=== PATIENT | female | born 1980 | race African-American/Black ===

== ENCOUNTER 2019-05-02 17:14 | Emergency (ER) | payer SELFPAY ==
[~2019-05-02] VITALS: Ht 177.8 cm; Wt 90.7 kg
--- NOTE | 2019-05-02 18:19 | PHYS DOC ---
Past Medical History Past Medical History: No Pertinent History (FARAZ BENNETT DO) Past Surgical History: No Surgical History (FARAZ BENNETT DO) Additional Information: Nonsmoker Alcohol Use: None Drug Use: None (FARAZ BENNETT DO) Adult General Chief Complaint Chief Complaint: ABDOMINAL PAIN HPI HPI Patient is a 39 year old female with no significant medical history who presents to the ED today for vaginal bleeding in . Patient states her last menstrual cycle was March 22, 2019. She states she started having vaginal bleeding on April 22, 2019 yesterday she bleeding quiet heavy and it has slowed down today. Patient is also complaining of abdominal cramping. She is a 4 para 3. She states she recently moved from [facility] to [facility]. [place] (BAM MILLER APRN) Review of Systems Review of Systems Constitutional: Denies fever or chills [] Eyes: Denies change in visual acuity, redness, or eye pain [] HENT: Denies nasal congestion or sore throat [] Respiratory: Denies cough or shortness of breath [] Cardiovascular: No additional information not addressed in HPI [] GI: Reports abdominal pain and vaginal bleeding in , denies nausea, vomiting, bloody stools or diarrhea [] : Denies dysuria or hematuria [] Musculoskeletal: Denies back pain or joint pain [] Integument: Denies rash or skin lesions [] Neurologic: Denies headache, focal weakness or sensory changes [] All other systems were reviewed and found to be within normal limits, except as documented in this note. (BAM MILLER APRN) Allergies Allergies Allergies Coded Allergies Type Severity Reaction Last Updated Verified No Known Drug Allergies 05/02/19 No (FARAZ BENNETT DO) Physical Exam Physical Exam Constitutional: Well developed, well nourished, no acute distress, non-toxic appearance. [] HENT: Normocephalic, atraumatic, bilateral external ears normal, oropharynx nisha st, no oral exudates, nose normal. [] Eyes: PERRLA, EOMI, conjunctiva normal, no discharge. [] Neck: Normal range of motion, no tenderness, supple, no stridor. [] Cardiovascular:Heart rate regular rhythm, no murmur [] Lungs & Thorax: Bilateral breath sounds clear to auscultation [] Abdomen: Bowel sounds normal, soft, no masses, no pulsatile masses. [] Pelvic exam External pelvic is normal, cervix is visualized, appears open mild amount of bright red blood in the vaginal vault which was removed with cotton swabs, mild tenderness around cervix, no adnexal tenderness. Skin: Warm, dry, no erythema, no rash. [] Back: No tenderness, no CVA tenderness. [] Extremities: No tenderness, no cyanosis, no clubbing, ROM intact, no edema. [] Neurologic: Alert and oriented X 3, normal motor function, normal sensory function, no focal deficits noted. [] Psychologic: Affect normal, judgement normal, mood normal. [] (MARIELAUNGABAM CBX OPERATOR) Physical Exam Constitutional: Well developed, well nourished, no acute distress, non-toxic appearance HENT: Normocephalic, atraumatic, oropharynx moist Lungs & Thorax: No respiratory distress Abdomen: Soft, no tenderness Skin: Warm, dry, no erythema, no rash Neurologic: Alert and oriented X 3, no focal deficits noted Psychologic: Affect normal, judgement normal (FARAZ BENNETT DO) Current Patient Data Vital Signs Vital Signs Date Time Temp Pulse Resp B/P (MAP) Pulse Ox O2 Delivery O2 Flow Rate FiO2 05/02/19 20:48 64 25 150/103 (119) 99 Room Air 05/02/19 18:20 98.7 98.7 (FARAZ BENNETT DO) Lab Values Laboratory Tests Test 05/02/19 18:00 05/02/19 18:18 05/02/19 19:05 Urine Collection Type Unknown Urine Color Yellow Urine Clarity Clear Urine pH 6.0 Urine Specific [place] >=1.030 Urine Protein Negative mg/dL (NEG-TRACE) Urine Glucose (UA) 100 mg/dL (NEG) Urine Ketones (Stick) Negative mg/dL (NEG) Urine Blood Large (NEG) Urine Nitrite Negative (NEG) Urine Bilirubin Negative (NEG) Urine Urobilinogen Dipstick 1.0 mg/dL (0.2 mg/dL) Urine Leukocyte Esterase Negative (NEG) Urine RBC 11-20 /HPF (0-2) Urine WBC 0 /HPF (0-4) Urine Squamous Epithelial Cells Few /LPF Urine Bacteria 0 /HPF (0-FEW) POC Urine HCG, Qualitative Hcg positive (Negative) White Blood Count 4.3 x10^3/uL (4.0-11.0) Red Blood Count 4.44 x10^6/uL (3.50-5.40) Hemoglobin 11.9 g/dL (12.0-15.5) L Hematocrit 35.7 % (36.0-47.0) L Mean Corpuscular Volume 80 fL (79-100) Mean Corpuscular Hemoglobin 27 pg (25-35) Mean Corpuscular Hemoglobin Concent 33 g/dL (31-37) Red Cell Distribution Width 14.5 % (11.5-14.5) Platelet Count 279 x10^3/uL (140-400) Neutrophils (%) (Auto) 41 % (31-73) Lymphocytes (%) (Auto) 44 % (24-48) Monocytes (%) (Auto) 13 % (0-9) H Eosinophils (%) (Auto) 1 % (0-3) Basophils (%) (Auto) 1 % (0-3) Neutrophils # (Auto) 1.8 x10^3uL (1.8-7.7) Lymphocytes # (Auto) 1.9 x10^3/uL (1.0-4.8) Monocytes # (Auto) 0.6 x10^3/uL (0.0-1.1) Eosinophils # (Auto) 0.1 x10^3/uL (0.0-0.7) Basophils # (Auto) 0.0 x10^3/uL (0.0-0.2) Maternal Serum HCG Beta Subunit 169 mIU/mL (0-5) H Sodium Level 138 mmol/L (136-145) Potassium Level 3.3 mmol/L (3.5-5.1) L Chloride Level 103 mmol/L (98-107) Carbon Dioxide Level 26 mmol/L (21-32) Anion Gap 9 (6-14) Blood Urea Nitrogen 12 mg/dL (7-20) Creatinine 1.0 mg/dL (0.6-1.0) Estimated GFR (Cockcroft-Gault) 75.1 BUN/Creatinine Ratio 12 (6-20) Glucose Level 100 mg/dL (70-99) H Calcium Level 8.8 mg/dL (8.5-10.1) Total Bilirubin 0.3 mg/dL (0.2-1.0) Aspartate Amino Transferase (AST) 21 U/L (15-37) Alanine Aminotransferase (ALT) 26 U/L (14-59) Alkaline Phosphatase 63 U/L (46-116) Total Protein 7.3 g/dL (6.4-8.2) Albumin 3.8 g/dL (3.4-5.0) Albumin/Globulin Ratio 1.1 (1.0-1.7) Laboratory Tests 05/02/19 19:05 Laboratory Tests 05/02/19 19:05 Microbiology 05/02/19 Wet Prep - Final, Complete (FARAZ BENNETT DO) Lab Values Microbiology 05/02/19 Wet Prep - Final, Complete (BAM MILLER APRN) EKG EKG [] (BAM MILLER APRN) Radiology/Procedures Radiology/Procedures [] (BAM MILLER APRN) Radiology/Procedures PROCEDURE: OB <14 WKS W/TV OB ultrasound less than 14 weeks to include transabdominal and transvaginal imaging 05/02/2019 CLINICAL HISTORY: First trimester with vaginal bleeding and pain. TECHNIQUE: Using the distended urinary bladder as a sonographic window, a real-time ultrasound examination of the pelvis was performed. Additionally in an attempt to better evaluate the uterus and adnexa, a transvaginal ultrasound study was performed. Multiple images were obtained. FINDINGS: The uterus is within normal limits in size and echogenicity. It measures 11.2 x 5.9 x 4.8 cm in longitudinal, transverse, and AP dimensions. The endometrial echo complex measures 1.4 cm in thickness which is within normal limits. No focal abnormality of the uterus is seen. No gestational sac is seen within the uterus. Both ovaries are within normal limits in size and echogenicity. The right ovary measures 3.4 x 2.5 x 1.8 cm in size. The left ovary measures 3.4 x 2.0 x 2.4 cm in size. No adnexal mass is seen. No free fluid is noted. IMPRESSION: Negative study. In a patient who is , this ultrasound finding could be seen with a very early IUP, missed spontaneous or possibly due to an occult ectopic . Clinical correlation and correlation with the patient's serial beta hCG level is recommended. Electronically signed by: Agustin Sauceda MD (05/02/2019 8:34 PM) [facility] (FARAZ BENNETT DO) Course & Med Decision Making Course & Med Decision Making Pertinent Labs and Imaging studies reviewed. (See chart for details) This is a 39-year-old female patient G4 P 3 presenting to the ED today complaining of vaginal bleeding bleeding in that began 3 days ago she states she bleed heavily yesterday but it has slowed down. Last menstrual cycle was March 22, 2019. Positive urine hCG, mild amount of bleeding noted in the vaginal vault during pelvic exam which was removed with cotton swabs. Positive urine hCG. CBC with a normal WBC, hemoglobin 11.9, hematocrit 35.7. Wet prep with wbc's otherwise no acute findings. CMP with K of 3.3 otherwise no acute findings. UA negative for infection. Beta hcg 169 Blood group O + OB ultrasound pending. [address] Bennett. (BAM MILLER APRN) Course & Med Decision Making Sign out obtained from Bam OLIVO for patient with concern for vaginal bleeding in with low BHCG. RH positive. Patient awaiting US results. US without signs of IUP. Concern for complete miscarriage. Patient seen and evaluated by myself. Patient stable for discharge with outpatient follow-up with PCP/SPA MANAGER. SPA MANAGER referral provided. Patient instructed to obtain repeat beta-hCG in the next 2- 3 days. Discussed findings and plan with patient and family, who acknowledge understanding and agreement. (FARAZ BENNETT DO) Dragon Disclaimer Dragon Disclaimer This electronic medical record was generated, in whole or in part, using a voice recognition dictation system. (BAM MILLER APRN) Departure Departure Impression: Primary Impression: Miscarriage Disposition: 01 HOME, SELF-CARE Condition: STABLE Referrals: MINA SHEPHERD Jr, MD Patient Instructions: Miscarriage, [id number] Additional Instructions: Please follow with your doctor or ELEMENT SETTER in the next 2-3 days to have a repeat BHCG lab test performed. Attending Signature Attending Signature I have personally interviewed and examined the patient. All charts, labs, and imaging studies were reviewed. I agree with the PA/TILE PROFESSIONAL's findings, exam, and plan. (FARAZ BENNETT DO) BAM MILLER APRN May 02, 2019 18:19 FARAZ BENNETT DO May 02, 2019 21:11
[2019-05-02 18:24] LABS: BILIRUBIN,URINE NEGATIVE (NEG); CLARITY,URINE CLEAR; COLOR,URINE YELLOW; NITRITE,URINE NEGATIVE (NEG); PROTEIN,URINE NEGATIVE (NEG-TRACE)
[2019-05-02 18:43] LABS: BACTERIA,URINE 0 /HPF (0-FEW); SQUAMOUS EPITHELIAL CELL,UR FEW /LPF; WBC,URINE 0 /HPF (0-4)
[2019-05-02 19:28] LABS: BASO % 1 % (0-3); EOS # 0.1 x10^3/uL (0.0-0.7); EOS % 1 % (0-3); HEMATOCRIT 35.7 % (36.0-47.0); HEMOGLOBIN 11.9 g/dL (12.0-15.5); LYMPH # 1.9 x10^3/uL (1.0-4.8); LYMPH % 44 % (24-48); MEAN CORPUSCULAR HEMOGLOBIN 27 pg (25-35); MEAN CORPUSCULAR HGB CONC 33 g/dL (31-37); MEAN CORPUSCULAR VOLUME 80 fL (79-100); MONO # 0.6 x10^3/uL (0.0-1.1); MONO % 13 % (0-9); NEUT # 1.8 x10^3uL (1.8-7.7); NEUT % 41 % (31-73); PLATELET COUNT 279 x10^3/uL (140-400); RED BLOOD COUNT 4.44 x10^6/uL (3.50-5.40); RED CELL DISTRIBUTION WIDTH 14.5 % (11.5-14.5); WHITE BLOOD COUNT 4.3 x10^3/uL (4.0-11.0)
[2019-05-02 19:35] LABS: CALCIUM 8.8 mg/dL (8.5-10.1); GFR 75.1; POTASSIUM 3.3 mmol/L (3.5-5.1)
[2019-05-02 19:42] LABS: ALBUMIN 3.8 g/dL (3.4-5.0); ALBUMIN/GLOBULIN RATIO 1.1 (1.0-1.7); TOTAL BILIRUBIN 0.3 mg/dL (0.2-1.0); TOTAL PROTEIN 7.3 g/dL (6.4-8.2)
--- NOTE | 2019-05-02 20:37 | RAD ---
OB ultrasound less than 14 weeks to include transabdominal and transvaginal imaging 05/02/2019 CLINICAL HISTORY: First trimester with vaginal bleeding and pain. TECHNIQUE: Using the distended urinary bladder as a sonographic window, a real-time ultrasound examination of the pelvis was performed. Additionally in an attempt to better evaluate the uterus and adnexa, a transvaginal ultrasound study was performed. Multiple images were obtained. FINDINGS: The uterus is within normal limits in size and echogenicity. It measures 11.2 x 5.9 x 4.8 cm in longitudinal, transverse, and AP dimensions. The endometrial echo complex measures 1.4 cm in thickness which is within normal limits. No focal abnormality of the uterus is seen. No gestational sac is seen within the uterus. Both ovaries are within normal limits in size and echogenicity. The right ovary measures 3.4 x 2.5 x 1.8 cm in size. The left ovary measures 3.4 x 2.0 x 2.4 cm in size. No adnexal mass is seen. No free fluid is noted. IMPRESSION: Negative study. In a patient who is , this ultrasound finding could be seen with a very early IUP, missed spontaneous or possibly due to an occult ectopic . Clinical correlation and correlation with the patient's serial beta hCG level is recommended. Electronically signed by: Agustin Sauceda MD (05/02/2019 8:34 PM) [facility]
[2019-05-02 20:48] VITALS: BP 150/103
[2019-05-06 00:07] LABS: GC PROBE Negative (Negative)
== END 2019-05-02 21:40 | disposition home or self-care (01) ==
LOC: ER 17:14
DX: O03.9 Complete or unspecified spontaneous abortion without complication (principal); Z3A.01 Less than 8 weeks gestation of pregnancy
CPT/HCPCS: 36415; 76801; 76817; 80053; 81001; 81025; 84702; 85025; 86850; 86900; 86901; 87491; 87591; 99285; Q0111

== ENCOUNTER 2019-10-30 17:57 | Observation (INO) | payer SELFPAY ==
[2019-10-30] MEDS ORDERED: IV RINGERS,LACTATED 1000ML 1,000 ML IV SCH (18:14)
[2019-10-30 18:30] LABS: BILIRUBIN,URINE NEGATIVE (NEG); CLARITY,URINE CLEAR; COLOR,URINE YELLOW; NITRITE,URINE NEGATIVE (NEG); PROTEIN,URINE NEGATIVE (NEG-TRACE)
[2019-10-30 18:43] LABS: BACTERIA,URINE MODERATE /HPF (0-FEW); RBC,URINE 0 /HPF (0-2); SQUAMOUS EPITHELIAL CELL,UR MOD /LPF; WBC,URINE 0 /HPF (0-4)
[2019-10-30 19:12] LABS: BASO % 1 % (0-3); EOS # 0.1 x10^3/uL (0.0-0.7); EOS % 1 % (0-3); HEMATOCRIT 31.6 % (36.0-47.0); HEMOGLOBIN 10.5 g/dL (12.0-15.5); LYMPH # 1.5 x10^3/uL (1.0-4.8); LYMPH % 24 % (24-48); MEAN CORPUSCULAR HEMOGLOBIN 28 pg (25-35); MEAN CORPUSCULAR HGB CONC 33 g/dL (31-37); MEAN CORPUSCULAR VOLUME 84 fL (79-100); MONO # 0.6 x10^3/uL (0.0-1.1); MONO % 10 % (0-9); NEUT # 4.1 x10^3/uL (1.8-7.7); NEUT % 65 % (31-73); PLATELET COUNT 237 x10^3/uL (140-400); RED BLOOD COUNT 3.75 x10^6/uL (3.50-5.40); RED CELL DISTRIBUTION WIDTH 14.1 % (11.5-14.5); WHITE BLOOD COUNT 6.4 x10^3/uL (4.0-11.0)
--- NOTE | 2019-10-30 20:05 | RAD ---
Obstetric ultrasound greater than 14 weeks: Reason for examination: Back pain. No care. 5 para 3 miscarriage 1. Transabdominal ultrasound examination of the pelvis was performed. Cervix length is normal at 5.2 cm and appears to be closed. There is possibly a 5.3 x 5.1 x 4.0 cm anterior fibroid present. Adnexal structures are not optimally visualized. Single viable intrauterine gestation is present. Cardiac activity is seen in the 4 chambered heart with a cardiac rate of 135 bpm. motion is present. Fetus is in breech presentation at the present time. There is a three-vessel umbilical cord with normal insertion. Adequate amniotic fluid is present at 12.2 cm. stomach, kidneys, bladder and spine showed no gross abnormalities. No gross intracranial abnormalities evident. Placenta is anterior and grade one. Biparietal diameter is 5.50 cm corresponding to gestational age of 22 weeks 5 days. Head circumference is 21.94 cm corresponding to gestational age of 24 weeks 0 days. Abdominal circumference is 19.43 cm corresponding to gestational age of 24 weeks 1 day. Femur length is 4.20 cm corresponding to gestational age of 23 weeks 5 days. Head circumference to abdominal circumference ratio is 1.13. Estimated weight is 638 g +/- 90 4 g. Estimated gestational age of 23 weeks 5 days and estimated date of confinement by ultrasound of 02/21/2020. IMPRESSION: Single viable intrauterine gestation with mean gestational age estimated at 23 weeks 5 days and estimated date of confinement of 02/21/2020. No gross abnormalities evident. Electronically signed by: Carleen Torres MD (10/30/2019 8:03 PM) [facility]
== END 2019-10-30 20:13 | disposition home or self-care (01) ==
LOC: 3 SO LND 17:57
PROVIDERS: ADMIT Obstetrics & Gynecology; ATTEND Obstetrics & Gynecology
DX: O26.899 Other specified pregnancy related conditions, unspecified trimester (principal); R10.9 Unspecified abdominal pain; Z3A.00 Weeks of gestation of pregnancy not specified
CPT/HCPCS: 36415; 76805; 81001; 85025; 86592; 86703; 86762; 86850; 86900; 86901; 87086; 87340; G0378; G0379

== ENCOUNTER 2019-12-29 17:53 | Emergency (ER) | payer SELFPAY ==
[~2019-12-29] VITALS: Ht 160 cm; Wt 77.0 kg
[2019-12-29 17:56] VITALS: BP 140/79
--- NOTE | 2019-12-29 18:18 | PHYS DOC ---
Past Medical History Past Medical History: No Pertinent History Past Surgical History: No Surgical History Smoking Status: Never Smoker Alcohol Use: None Drug Use: None Adult General Chief Complaint Chief Complaint: CHEST PAIN [facility] Patient is a 39 year old female who presents with epigastric pain started at 5:00 PM today. The patient states she is 7 months . Vital signs are stable. The patient denies any medical history. She denies any vaginal bleeding or discharge. Complete ROS were reviewed and found to be within normal limits, except as docum ented in the [facility] Allergies Allergies Allergies Coded Allergies Type Severity Reaction Last Updated Verified No Known Drug Allergies 05/02/19 No Physical Exam Physical Exam Constitutional: Well developed, well nourished, no acute distress, non-toxic appearance. [] HENT: Normocephalic, atraumatic, bilateral external ears normal, oropharynx moist, no oral exudates, nose normal. [] Eyes: PERRLA, EOMI, conjunctiva normal, no discharge. [] Neck: Normal range of motion, no tenderness, supple, no stridor. [] Cardiovascular:Heart rate regular rhythm, no murmur [] Lungs & Thorax: Bilateral breath sounds clear to auscultation [] Abdomen: Bowel sounds normal, soft, epigastric tenderness on palpation., no masses, no pulsatile masses. [] Neurologic: Alert and oriented X 3, normal motor function, normal sensory function, no focal deficits noted. [] Psychologic: Affect normal, judgement normal, mood normal. [] Current Patient Data Vital Signs Vital Signs Date Time Temp Pulse Resp B/P (MAP) Pulse Ox O2 Delivery O2 Flow Rate FiO2 12/29/19 17:56 97.9 74 18 140/79 (99) 100 Room Air 97.9 EKG EKG [] Radiology/Procedures Radiology/Procedures [] Course & Med Decision Making Course & Med Decision Making Pertinent Labs and Imaging studies reviewed. (See chart for details) She was 7 months and has presented to the ER for epigastric pain. Labor and delivery asked for the patient to be cleared on to labor and delivery. EKG was performed and patient is in sinus rhythm STEMI is noted. The patient does not have any risk factors for cardiac disease. It appears the most urgent priority at this moment is to determine the well-being of the fetus. Patient to labor and delivery to have the fetus checked out. Dragon Disclaimer Dragon Disclaimer This electronic medical record was generated, in whole or in part, using a voice recognition dictation system. Departure Departure Impression: Primary Impression: Epigastric abdominal pain affecting Disposition: 01 HOME, SELF-CARE Condition: STABLE Referrals: NO PCP (PCP) Additional Instructions: Thank you for visiting [facility]. We appreciate you trusting us with your care. If any additional problems come up don't hesitate to return to visit us. Please follow up with your primary care provider so they can plan additional care if needed and know about the problem that you had. If symptoms worsen come back to the Emergency Department. Any concerning symptoms that start such as chest pain, shortness of air, weakness or numbness on one side of the body, running high fevers or any other concerning symptoms return to the ER. FARAZ WARD APRN Dec 29, 2019 18:18
--- NOTE | 2019-12-31 07:19 | EKG ---
[facility] [address] [place] [id number] Test Date: 2019-12-29 Test Time: 18:02:32 Pat Name: BREONNA MADDOX Department: Room: Gender: F Sand Technician: : 1980 Requested By: FARAZ WARD Order Number: [id number] Reading MD: Measurements Intervals [place] Rate: 76 P: 27 MT: 172 QRS: 11 QRSD: 76 T: 19 QT: 364 QTc: 414 Interpretive Statements SINUS RHYTHM QRS(T) CONTOUR ABNORMALITY CONSIDER ANTEROLATERAL MYOCARDIAL DAMAGE POSSIBLY ABNORMAL ECG RI6.01 No previous ECG available for comparison
== END 2019-12-29 18:33 | disposition home or self-care (01) ==
LOC: ER 17:53
DX: O26.891 Other specified pregnancy related conditions, first trimester (principal); R10.13 Epigastric pain; Z3A.01 Less than 8 weeks gestation of pregnancy
CPT/HCPCS: 93005; 99283

== ENCOUNTER 2019-12-29 18:50 | Observation (INO) | payer SELFPAY ==
[~2019-12-29] VITALS: Ht 153.9 cm; Wt 78.5 kg
[2019-12-29 19:12] VITALS: BP 139/84
[2019-12-29 19:34] LABS: BILIRUBIN,URINE NEGATIVE (NEG); CLARITY,URINE CLOUDY; COLOR,URINE YELLOW; NITRITE,URINE NEGATIVE (NEG); PH,URINE 6.5; PROTEIN,URINE NEGATIVE (NEG-TRACE); UROBILINOGEN,URINE 0.2 mg/dL (0.2 mg/dL)
[2019-12-29 19:50] LABS: BACTERIA,URINE MODERATE /HPF (0-FEW); HYALINE CASTS, URINE FEW /HPF; SQUAMOUS EPITHELIAL CELL,UR FEW /LPF
[2019-12-29 20:20] VITALS: BP 146/87
== END 2019-12-29 20:25 | disposition still patient (30) ==
LOC: 3 SO LND 18:50
PROVIDERS: ADMIT Obstetrics & Gynecology; ATTEND Obstetrics & Gynecology
DX: O26.893 Other specified pregnancy related conditions, third trimester (principal); R10.13 Epigastric pain; Z3A.32 32 weeks gestation of pregnancy
CPT/HCPCS: 81001; 87086; G0378; G0379

== ENCOUNTER 2019-12-29 20:28 | Emergency (ER) | payer SELFPAY ==
[~2019-12-29] VITALS: Ht 167.6 cm; Wt 72.0 kg
[2019-12-29 21:30] VITALS: BP 129/79
== END 2019-12-29 22:15 | disposition left against medical advice (07) ==
LOC: ER 20:28
DX: O26.891 Other specified pregnancy related conditions, first trimester (principal); R10.9 Unspecified abdominal pain; Z53.21 Procedure and treatment not carried out due to patient leaving prior to being seen by health care provider